=== PATIENT | male | born 1965 | race Caucasian/White ===

== ENCOUNTER 2023-04-10 01:34 | Inpatient (IN) | payer OTHER ==
[2023-04-10] VITALS (28 sets, daily range): BP systolic 110–170; BP diastolic 79–107
[~2023-04-10] VITALS: Ht 167.6 cm; Wt 75.0 kg
[2023-04-10 04:21] LABS: BASOPHILS ABSOLUTE AUTO 0.13 K/mm3 (0.00-0.23); BASOPHILS PERCENT AUTO 1 % (0-2); EOSINOPHILS ABSOLUTE AUTO 0.06 K/mm3 (0.00-0.68); EOSINOPHILS PERCENT AUTO 1 % (0-6); Hematocrit 27.3 % (37.0-53.0); Hemoglobin 8.4 g/dL (13.5-17.5); IMMATURE GRAN ABSOLUTE AUTO 0.07 K/mm3 (0.00-0.10); IMMATURE GRAN PERCENT AUTO 1 % (0-1); LYMPHOCYTES ABSOLUTE AUTO 2.36 K/mm3 (0.84-5.20); LYMPHOCYTES PERCENT AUTO 23 % (21-46); MONOCYTES ABSOLUTE AUTO 0.99 K/mm3 (0.16-1.47); MONOCYTES PERCENT AUTO 10 % (4-13); Mean Corpuscular HGB 24.5 pg (26.0-34.0); Mean Corpuscular HGB Conc 30.8 g/dL (31.5-36.5); Mean Corpuscular Volume 80 fL (80-100); Mean Platelet Volume 11.5 fL (9.1-12.4); NEUTROPHILS ABSOLUTE AUTO 6.59 K/mm3 (1.96-9.15); NEUTROPHILS PERCENT AUTO 65 % (41-73); NRBC ABSOLUTE 0.15 K/mm3 (0.00-0.02); NRBC Auto 1.5 /100 WBC (0.0-0.2); Platelet Count 135 K/mm3 (150-400); RDW Coefficient Variation 18.6 % (11.7-14.2); RDW Standard Deviation 53.8 fL (35.1-46.3); Red Blood Cell Count 3.43 M/mm3 (4.30-5.90)
[2023-04-10 04:35] LABS: International Normalized Ratio 1.09; Prothrombin Time Results 11.4 Sec (9.7-11.5)
--- NOTE | 2023-04-10 05:09 | NUR ---
ASSUMED CARE/SHIFT SUMMARY PT ARRIVED TO UNIT AT 0340 FROM [facility]. PT VERY CONFUSED. PT ABLE TO STATE , BUT UNABLE TO ANSWER OTHER ORIENTATION QUESTIONS. PT TALKING TO SELF, REACHING FOR THINGS IN FRONT OF HIM, MODERATELY TREMULOUS. PT IS REDIRECTABLE AT THIS TIME. CIWA 21. MEDICATED WITH ATIVAN PER EMAR. PT ON RA, O2 SATS > 95%. CARDIAC MONITORING REFLECTS SINUS TACH. SBP HYPERTENSIVE, SBP 150s-160s. HR 110s. PT INCONTINENT UPON ARRIVAL TO UNIT, CONDOM CATH PLACED. WILL CONTINUE TO MONITOR UNTIL CARE IS TRANSITIONED TO DAY SHIFT.
[2023-04-10 05:34] LABS: Albumin, Blood 3.4 g/dL (3.4-5.0); Albumin/Globulin Ratio 0.7 (0.8-1.8); Bilirubin, Total 1.3 mg/dL (0.1-1.0); Bun/Creatinine Ratio 11.4 (12.0-20.0); Creatinine, Blood 0.61 mg/dL (0.60-1.20); Globulin, Blood 4.7 g/dL (2.2-4.0); Magnesium, Blood 1.5 mg/dL (1.6-2.4); Phosphorus, Blood 1.9 mg/dL (2.5-4.9); Potassium, Blood 3.5 mmol/L (3.5-5.5); Thyroid Stimulating Hormone 2.69 uIU/mL (0.360-4.800); Total Protein, Blood 8.1 g/dL (6.4-8.2)
[2023-04-10 05:49] LABS: U Amphetamine Screen DETECTED; U Barbituate Screen DETECTED; U Benzodiazapine Screen DETECTED; U Methamphetamine Screen DETECTED
[2023-04-10 05:50] LABS: U Buprenorphine Screen Not Detected; U Cannabinoids Screen Not Detected; U Cocaine Screen Not Detected; U Methadone Screen Not Detected; U Opiates Screen Not Detected; U Oxycodone Screen Not Detected; U Phencyclidine Screen Not Detected; U Propoxyphene Screen Not Detected
--- NOTE | 2023-04-10 16:59 | NUR ---
SHIFT SUMMARY NO ACUTE CHANGES THIS SHIFT. PT HAS BEEN RESTING QUIETLY MOST OF THIS SHIFT. WHEN AWAKE, PT REMAINS CONFUSED AND WITH VISUAL AND AUDITORY HALLUCINATIONS. PT IS CALM AND COOPERATIVE. PT REMAINS TREMULOUS WITH MOVEMENT. VITAL SIGNS STABLE. PT ON ROOM AIR. LR INFUSING AT 75 ML/HR. PT MED WITH ATIVAN PER EMAR. CONDOM CATH IN PLACE WITH YELLOW URINE OUTPUT NOTED. WILL CONTINUE TO MONITOR AND REPORT OFF TO ONCOMING RN.
--- NOTE | 2023-04-10 19:00 | NUR ---
ASSUMED CARE OF PT AT 1900 PT RESTING IN BED WITH NO VISITORS AT BEDSIDE DURING REPORT. PT MUMBLES AND SLURRS WORDS. UNABLE TO UNDERSTAND WHAT PT IS TRYING TO SAY. LR AT 75 MLS/HR. CONDOM CATH IN PLACE. VITALS WNL. PLEASE SEE FULL ASSESSMENT FOR DETAILS.
--- NOTE | 2023-04-10 22:16 | NUR ---
PT WOKE UP ASKING FOR WATER AND FOOD. PT WAS ABLE TO TALK WITH SLIGHT SLURRING BUT UNDERSTANDABLE. PT IS ABLE TO DRINK WATER AND EAT PUDDING AND APPLESAUCE WITHOUT ISSUE AT THIS TIME. WILL CONTINUE TO MONITOR.
[2023-04-11] VITALS (25 sets, daily range): BP systolic 95–147; BP diastolic 66–97
[2023-04-11 03:33] LABS: Hematocrit 27.7 % (37.0-53.0); Hemoglobin 8.1 g/dL (13.5-17.5); Mean Corpuscular HGB 23.7 pg (26.0-34.0); Mean Corpuscular HGB Conc 29.2 g/dL (31.5-36.5); Mean Corpuscular Volume 81 fL (80-100); Mean Platelet Volume 12.2 fL (9.1-12.4); NRBC ABSOLUTE 0.14 K/mm3 (0.00-0.02); NRBC Auto 1.6 /100 WBC (0.0-0.2); Platelet Count 151 K/mm3 (150-400); RDW Coefficient Variation 19.1 % (11.7-14.2); RDW Standard Deviation 55.5 fL (35.1-46.3); Red Blood Cell Count 3.42 M/mm3 (4.30-5.90); White Blood Cell Count 8.61 K/mm3 (4.00-11.30)
[2023-04-11 03:55] LABS: Anion Gap 8 mmol/L (6-16); Blood Urea Nitrogen 8 mg/dL (8-24); Bun/Creatinine Ratio 12.1 (12.0-20.0); CO2, Blood 23 mmol/L (21-32); Calcium, Blood 7.6 mg/dL (8.5-10.1); Chloride, Blood 103 mmol/L (98-108); Creatinine, Blood 0.66 mg/dL (0.60-1.20); Glomerular Filtration Rate 107 (60-); Glucose, Blood 114 mg/dL (70-99); Magnesium, Blood 1.9 mg/dL (1.6-2.4); Phosphorus, Blood 2.2 mg/dL (2.5-4.9); Sodium, Blood 134 mmol/L (136-145)
--- NOTE | 2023-04-11 06:00 | NUR ---
END OF SHIFT SUMMARY PT RESTED MOST OF THE NIGHT WITH INFREQUENT BOUTS OF WAKING UP. -A/O X1-2. REMEMBERS THAT HE IS IN THE HOSPITAL. -CIWA CURRENTLY AT 14. HALLUCINATIONS OF ANTS ON THE STOKES WITH NIGHT TERRORS WELL. SWEATING AND TREMORS PRESENT. -POTASSIUM ORDERED AND RUNNING AT THIS TIME. 80 MEQ TOTAL ORDERED. GI,- CONDOM CATH IN PLACE WITH ORANGE/RED URINE PRESENT. NO BM THIS SHIFT. -CARDIAC- HR 110'S SINUS TACHY WITH SBP 90'S. NO ACUTE CONCERNS AND THIS TIME. RESP- SPO2 >93% ON RA. PT IS ABLE TO CLEAR SECRETIONS ON HIS OWN. WILL CONTINUE TO MONITOR UNTIL REPORT GIVEN TO AM RN.
--- NOTE | 2023-04-11 17:06 | NUR ---
SHIFT SUMMARY NO ACUTE CHANGES THIS SHIFT. PT RESTING QUIETLY MOST OF THIS SHIFT. WHEN PT IS AWAKE HE REPORTS VISUAL AND AUDITORY HALLUCINATIONS AND CONTINUES TO BE CONFUSED. PT IS REDIRECTABLE, BUT SPEECH IS NON SENSICAL AT TIMES. PT FOLLOWS SIMPLE COMMANDS APPROPRIATELY. PT MED WITH ATIVAN PER EMAR. LR INFUSING AT 75 ML/HR. PT TAKING PO INTAKE IN WELL. CONDOM CATH REMAINS IN PLACE WITH YELLOW URINE OUTPUT NOTED. VITAL SIGNS REMAIN STABLE. WILL CONTINUE TO MONITOR AND REPORT OFF TO ONCOMING RN.
--- NOTE | 2023-04-11 19:15 | NUR ---
ASSUMPTION OF CARE: RECEIVED REPORT FROM JOSE HILL. PT ALERT AND ORIENTED TO TIME, PERSON AND SITUATION. HAS PERIODS OF CONFUSION BUT IS EASILY REDIRECTABLE. DENIES N/V, HEADACHE OR HALLUCINATIONS AT THIS TIME. ON RA WITH SPO2 >95%. LUNG SOUNDS CLEAR. DENIES SOB. CONTINUOUS CARDIAC MONITORING IN PLACE, SR/ST WITH RATE 90-100'S. DENIES CHEST PAIN OR PRESSURE. SBP 140'S. LR INFUSING AT 75 ML/HR. PIV IN TACT TO LEFT AND RIGHT FOREARMS. PT C/O PAIN IN RIBS "STATES HE FEELS THOUGH HES BROKEN HIS RIB". MEDICATED PER AUG WITH RELIEF. CONDOM CATH IN PLACE, DRAINING YELLOW URINE. ABLE TO TOLERATE PO MEDS OKAY WITH WATER. CALL LIGHT IN REACH.
[2023-04-12] VITALS (11 sets, daily range): BP systolic 134–161; BP diastolic 82–116
[2023-04-12 03:15] LABS: BASOPHILS PERCENT AUTO 2 % (0-2); EOSINOPHILS ABSOLUTE AUTO 0.21 K/mm3 (0.00-0.68); EOSINOPHILS PERCENT AUTO 3 % (0-6); Hematocrit 28.3 % (37.0-53.0); Hemoglobin 8.4 g/dL (13.5-17.5); IMMATURE GRAN ABSOLUTE AUTO 0.04 K/mm3 (0.00-0.10); IMMATURE GRAN PERCENT AUTO 1 % (0-1); LYMPHOCYTES ABSOLUTE AUTO 2.04 K/mm3 (0.84-5.20); LYMPHOCYTES PERCENT AUTO 31 % (21-46); MONOCYTES ABSOLUTE AUTO 0.97 K/mm3 (0.16-1.47); MONOCYTES PERCENT AUTO 15 % (4-13); Mean Corpuscular HGB 24.3 pg (26.0-34.0); Mean Corpuscular HGB Conc 29.7 g/dL (31.5-36.5); Mean Corpuscular Volume 82 fL (80-100); Mean Platelet Volume 11.2 fL (9.1-12.4); NEUTROPHILS ABSOLUTE AUTO 3.25 K/mm3 (1.96-9.15); NEUTROPHILS PERCENT AUTO 49 % (41-73); NRBC ABSOLUTE 0.06 K/mm3 (0.00-0.02); NRBC Auto 0.9 /100 WBC (0.0-0.2); Platelet Count 190 K/mm3 (150-400); RDW Coefficient Variation 19.6 % (11.7-14.2); RDW Standard Deviation 57.1 fL (35.1-46.3); Red Blood Cell Count 3.46 M/mm3 (4.30-5.90); White Blood Cell Count 6.61 K/mm3 (4.00-11.30)
[2023-04-12 03:42] LABS: Albumin, Blood 3.1 g/dL (3.4-5.0); Anion Gap 5 mmol/L (6-16); Blood Urea Nitrogen 6 mg/dL (8-24); Bun/Creatinine Ratio 9.8 (12.0-20.0); CO2, Blood 23 mmol/L (21-32); Calcium, Blood 8.3 mg/dL (8.5-10.1); Chloride, Blood 108 mmol/L (98-108); Creatinine, Blood 0.61 mg/dL (0.60-1.20); Glomerular Filtration Rate 110 (60-); Glucose, Blood 116 mg/dL (70-99); Magnesium, Blood 2.1 mg/dL (1.6-2.4); Phosphorus, Blood 2.2 mg/dL (2.5-4.9); Potassium, Blood 3.3 mmol/L (3.5-5.5); Sodium, Blood 136 mmol/L (136-145)
--- NOTE | 2023-04-12 05:45 | NUR ---
SHIFT SUMMARY: NO ACUTE CHANGES T/O THE SHIFT. PT REMAINS ALERT AND ORIENTED TO PERSON, PLACE AND SITUATION. PT HAS PERIODS OF MILD CONFUSION BUT IS EASILY REDIRECTABLE/ REORIENTED. CIWA RANGING FROM 1-8. PT HAVING MILD HALLUCINATIONS, MILD HEADACHE AND NAUSEA, WHICH WAS RELEIVED BY MEDICATIONS. MEDICATED WITH LIBRIUM AND ONE DOSE OF ATIVAN PER AUG. REMAINS ON RA WITH SATS >95%, DENIES SOB. CARDIAC MONITORING SHOWS SR/ST WITH RATE 90'S-110'S. SBP 130-150'S. DENIES CHEST PAIN OR PRESSURE. ABLE TO GET UP TO BSC WITH TWO PERSON STAFF ASSIST. SMALL BM, TANNISH JACKSON. CONDOM CATH REMAINS T/O SHIFT AND IS DRAINING LARGE AMOUNTS OF YELLOW URINE. PT ABLE TO TAKE IN PO MEDICATION AND FOOD WITH NO ISSUES. POTASSIUM 3.4 THIS AM, ORDERS TO REPLACE. CURRENTLY INFUSING. LR INFUSING AT 75 ML/HR T/O THE SHIFT. PIV TO LEFT AND RIGHT FOREARM, REMAIN INTACT AND PATENT. CALL LIGHT WITHIN REACH.
--- NOTE | 2023-04-12 09:21 | NUR ---
MELISA HAS BEEN APPROPRIATE THIS AM, HE OCC THINKS HE IS IN [place] OR AT HOME. HE IS EASILY REDIRECTABLE. CIWA 8, LIBRIUM GIVEN. EATS WELL, DRINKS WELL, CONDOM CATH IN PLACE AND HE QUESTIONS THE "BAG FULL?" HE HAS OCC COUGH, MOIST, NON- PRODUCTIVE. REPORT GIVEN TO CECELIARN, PT TRANSFERRING TO [facility] FLOOR ROOM 364.
--- NOTE | 2023-04-12 17:52 | NUR ---
PLEASANT TO CARE, TO MEDICAL FLOOR AT 0935, MEDICATED WITH LIBRIUM X2 TODAY, USES CALL LIGHT, ONE PERSON STAND BY ASSIST, TELLING JOKES, DENIES CP OR PRESSURE, HTN 160/100, POSSIBLE DISCHARGE HOME, MAKES NEEDS KNOWN, NO ACUTE CHANGES, WILL RELAY TO PM RN
--- NOTE | 2023-04-12 18:09 | NUR ---
ASSUMED CARE OF THE PT FROM NANNETTE HILL. PT IS A/OX4. PT APPEARS CALM AND COOPERATIVE AT THIS TIME. DINNER RORY. CALL LIGHT IN REACH
[2023-04-13 05:25] LABS: BASOPHILS ABSOLUTE AUTO 0.09 K/mm3 (0.00-0.23); BASOPHILS PERCENT AUTO 1 % (0-2); EOSINOPHILS ABSOLUTE AUTO 0.21 K/mm3 (0.00-0.68); EOSINOPHILS PERCENT AUTO 3 % (0-6); Hematocrit 29.9 % (37.0-53.0); Hemoglobin 8.7 g/dL (13.5-17.5); IMMATURE GRAN ABSOLUTE AUTO 0.01 K/mm3 (0.00-0.10); IMMATURE GRAN PERCENT AUTO 0 % (0-1); LYMPHOCYTES PERCENT AUTO 27 % (21-46); MONOCYTES ABSOLUTE AUTO 1.29 K/mm3 (0.16-1.47); MONOCYTES PERCENT AUTO 19 % (4-13); Mean Corpuscular HGB 24.2 pg (26.0-34.0); Mean Corpuscular HGB Conc 29.1 g/dL (31.5-36.5); Mean Corpuscular Volume 83 fL (80-100); NEUTROPHILS ABSOLUTE AUTO 3.35 K/mm3 (1.96-9.15); NEUTROPHILS PERCENT AUTO 50 % (41-73); NRBC ABSOLUTE 0.04 K/mm3 (0.00-0.02); NRBC Auto 0.6 /100 WBC (0.0-0.2); Platelet Count 245 K/mm3 (150-400); RDW Coefficient Variation 19.9 % (11.7-14.2); RDW Standard Deviation 59.1 fL (35.1-46.3); White Blood Cell Count 6.75 K/mm3 (4.00-11.30)
--- NOTE | 2023-04-13 05:31 | NUR ---
SUMMARY PT RESTING QUIETLY IN BED, WAKES EASILY, HAS BEEN PLEASANT AND COOPERATIVE WITH CARE, MED PER EMAR FOR ANXIETY AND AGITATION, CONDOM CATH DRAINING WELL, NO COMPLAINTS, VSS, WILL CONT TO MONITOR
[2023-04-13 05:58] VITALS: BP 152/95
[2023-04-13 06:06] LABS: Albumin, Blood 3.2 g/dL (3.4-5.0); Anion Gap 8 mmol/L (6-16); Blood Urea Nitrogen 6 mg/dL (8-24); Bun/Creatinine Ratio 9.8 (12.0-20.0); CO2, Blood 20 mmol/L (21-32); Chloride, Blood 107 mmol/L (98-108); Creatinine, Blood 0.61 mg/dL (0.60-1.20); Glomerular Filtration Rate 110 (60-); Glucose, Blood 112 mg/dL (70-99); Phosphorus, Blood 2.9 mg/dL (2.5-4.9); Potassium, Blood 3.5 mmol/L (3.5-5.5); Sodium, Blood 135 mmol/L (136-145)
[2023-04-13 08:01] VITALS: BP 150/102
[2023-04-13 17:09] VITALS: BP 143/91
--- NOTE | 2023-04-13 18:32 | NUR ---
NO ACUTE CHANGES, FORGETFUL AT TIMES, CLEARLY MAKES NEEDS KNOWN, MEDICATED FOR BACK PAIN WITH TYLENOL, POSSIBLE PLACEMENT OR RETURN TO [facility] ON SATURDAY, PATIENT REPORTS HIS MOTHER IN [place] WOULD COME AND GET HIM, BRIAN 3, WILL RELAY TO PM LIZ
[2023-04-13 19:53] VITALS: BP 141/91
[2023-04-14 03:54] VITALS: BP 154/95
[2023-04-14 05:15] LABS: Bun/Creatinine Ratio 15.6 (12.0-20.0); Creatinine, Blood 0.64 mg/dL (0.60-1.20); Potassium, Blood 3.7 mmol/L (3.5-5.5)
--- NOTE | 2023-04-14 06:35 | NUR ---
NO NEW CONCERNS OVERNIGHT. PT RECOMMENDING SNF PLACEMENT. CONDOM CATH IN PLACE. ALERT TO SELF, CONFUSED ON DATE.
[2023-04-14 07:31] VITALS: BP 155/93
--- NOTE | 2023-04-14 09:52 | NUR ---
DR EVANS ROUNDED ON PATIENT, POSSIBLE DISCHARGE TODAY AFTER PT SESSION, DEPENDING ON PATIENTS STRENGTH, PT NOTIFIED
--- NOTE | 2023-04-14 10:35 | NUR ---
REPORTED TO DR EVANS PT IS NOT RECOMMENDING DISCHARGE HOME AND A SNF IS MORE NEEDED FOR PATIENTS PHYSCAL ABILITIES, CALL OUT TO FAMILY DEVELOPMENT SPECIALIST TO SEE WHAT OPTIONS ARE AVAILABLE
[2023-04-14] MEDS ORDERED: FOLI1 PO (12:26)
[2023-04-14] MEDS ORDERED: TRAZ50 PO (12:26)
[2023-04-14] MEDS ORDERED: MAGNESIUM OXID500 MG PO (12:26)
[2023-04-14] MEDS ORDERED: B-1100 M1 PO (12:30)
[2023-04-14 16:11] VITALS: BP 136/98
--- NOTE | 2023-04-14 18:27 | NUR ---
NO CHANGES MADE, PT EVALUATED PATIENT AGAIN PER DR EVANS REQUEST, PT RECOMMENDING SNF TO BUILD STRENGTH, CONDOM CATH IN PLACE, PATIENT PLEASANT TO CARE, MAKES NEEDS KNOWN, USES CALL LIGHT, OOB WITH STAND BYASSIST WITH PT TODAY, PATIENT VERY UNSTEADY WHEN STANDING, CALL LIGHT WITH IN REACH, WILL RELAY TO PM RN
[2023-04-14 19:16] VITALS: BP 134/89
[2023-04-15 04:37] VITALS: BP 130/92
--- NOTE | 2023-04-15 05:26 | NUR ---
NOC SHIFT SUMMARY: PT CONFUSED AT TIMES. GOT HIMSELF OUT OF BED ONCE ON THIS SHIFT TO PUT CLOTHES ON. REDIRECTED EASILY. CONTINUES TO NEED SNF PLACEMENT. ALERT TO SELF AND PLACE. CONDOM CATHETER IN PLACE.
[2023-04-15 07:51] VITALS: BP 130/94
--- NOTE | 2023-04-15 09:34 | NUR ---
CONDOM CATHETER REMOVED PATIENT ABLE TO USE URINAL AT BEDSIDE, WILL ENCOURAGE HIM TO GET UP AND USE BR. IS USING CALL LIGHT APPROPRIATELY, BUT IS FORGETFUL AT TIMES. BED ALARM ON, CALL LIGHT AND BELONGINGS IN REACH.
[2023-04-15 15:16] VITALS: BP 136/86
--- NOTE | 2023-04-15 17:48 | NUR ---
SHIFT SUMMARY: NO ACUTE EVENTS. CONDOM CATH DISCONTINUED, IS ABLE TO USE URINAL. DENIED PAIN. TOLERATING REGULAR DIET. A&O X 2-3, FORGETFUL AT TIMES. WAS ABLE TO SHOWER TODAY. GAIT IS A BIT UNSTEADY, NEEDS TO BE REMINDED TO USE FWW. [facility] [place]
[2023-04-15 19:31] VITALS: BP 136/94
--- NOTE | 2023-04-16 04:35 | NUR ---
NOC SHIFT SUMMARY: NO NEW CHANGES. PATIENT PLEASANT. USING URINAL AT BEDSIDE. WAITING ON PLACEMENT IN [place] WHEN AVAILABLE.
[2023-04-16 04:41] VITALS: BP 128/69
[2023-04-16 07:38] VITALS: BP 156/102
[2023-04-16] MEDS ORDERED: METO25ER PO (12:10)
[2023-04-16 13:32] VITALS: BP 134/91
--- NOTE | 2023-04-16 13:49 | NUR ---
PATIENT DISCHARGED TO HOME WITH HOME HEALTH, WILL TRAVEL BY [facility] TO [facility]. SALINE LOCK REMOVED EARLIER. VERBALIZED UNDERSTANDING OF D/C INSTRUCTIONS. OFF UNIT VIA W/C AT 1350 TO MEET TAXI AT 1400. NO PERSONAL BELONGINGS LEFT BEHIND IN ROOM.
== END 2023-04-16 13:47 | disposition home health service (06) | DRG 897 ==
LOC: ICUE 03:39 → MEDS 03:39 → ICUE 04:00 → MEDS 04-12 09:45 → ENPENDDIS 04-16 12:41 → MEDS 04-16 13:47
PROVIDERS: Family Medicine; Internal Medicine; ADMIT Student in an Organized Health Care Education/Training Program
PROC: HZ2ZZZZ Detoxification Services for Substance Abuse Treatment (ICD-10-PCS; principal; 2023-04-10)
DX: F10.239 Alcohol dependence with withdrawal, unspecified (principal); E72.20 Disorder of urea cycle metabolism, unspecified; E87.1 Hypo-osmolality and hyponatremia; I10 Essential (primary) hypertension; D63.8 Anemia in other chronic diseases classified elsewhere; E83.42 Hypomagnesemia; D69.6 Thrombocytopenia, unspecified; E83.39 Other disorders of phosphorus metabolism; R00.0 Tachycardia, unspecified; E87.6 Hypokalemia; E88.09 Other disorders of plasma-protein metabolism, not elsewhere classified
CPT/HCPCS: 36415; 80048; 80053; 80069; 82140; 83735; 84100; 84443; 85025; 85027; 85610; 94640; 94664; 94760; 94762; 97110; 97116; 97162; 97530; A9270; J1644; J2060; J3411; J3475; J3480; J7050; J7060; J7120